=== PATIENT | male | born 1935 | race Caucasian/White ===

== ENCOUNTER 2017-08-07 15:19 | Inpatient (IN) | payer MEDICARE ==
[2017-08-07 16:17] LABS: Band 45 % (5-11); Hemoglobin 14.2 g/dL (14.0-18.0); Lymphocytes 4 % (21-51); MDiff Complete? YES; Mean Corpuscular HGB CONC 32.7 g/dL (32.0-36.0); Mean Corpuscular Hemoglobin 32.3 pg (27.0-31.0); Mean Corpuscular Volume 98.6 fl (80.0-94.0); Mean Platelet Volume 7.7 fL (7.4-10.4); Myelocyte 1 % (0-0); Neutrophil 50 % (42-75); PLT Morphology Comment Appears Decreased; Platelet Count 108 thou/uL (130-400); RBC Distribution Width 14.7 % (11.5-14.5); Reflex for Review?? NO; Vacuoles SLIGHT
--- NOTE | 2017-08-07 16:19 | RAD ---
CHEST ONE VIEW: History: Cough and dyspnea. Comparison: 12-09-16 FINDINGS: Cardiac silhouette and pulmonary vasculature are within normal limits. Mediastinum is midline with ao rtic calcification. Multifocal parenchymal infiltrates are present throughout the right lung and with in the left lower lobe. There is no evidence of pneumothorax. miter operator leads overlie the chest . IMPRESSION: 1. Bilateral multifocal pneumonia. 2. Atherosclerosis. POS: [facility]
[2017-08-07 16:22] LABS: ALT (SGPT) 16 U/L (8-55); AST (SGOT) 27 U/L (5-34); Albumin 3.5 g/dL (3.4-4.8); Alkaline Phosphatase 113 U/L (40-150); Anion Gap 14 mmol/L (10-20); BUN (Urea Nitrogen) 29 mg/dL (8.4-25.7); Bilirubin, Total 1.3 mg/dL (0.2-1.2); CK (CPK) 30 U/L (30-200); Calc. Creatinine Clearance 0 mL/min (70-130); Calcium 9.4 mg/dL (7.8-10.44); Carbon Dioxide 24 mmol/L (23-31); Chloride 104 mmol/L (98-107); Estimated GFR-MDRD 59; Globulin 3.1 g/dL (2.4-3.5); Glucose 100 mg/dL (83-110); Potassium 4.3 mmol/L (3.5-5.1); Protein, Total 6.6 g/dL (5.8-8.1); Sodium 138 mmol/L (136-145)
[2017-08-07 16:26] LABS: CKMB 0.7 ng/mL (0-6.6); Troponin I 0.115 ng/mL (< 0.028)
[2017-08-07] MEDS ORDERED: Cefepime 2 GM, Syringe 2.5 ML in Sterile Water 10 ML SLOW IVP SCH (16:45)
[2017-08-07 16:56] LABS: Bilirubin Small (Negative); Blood, Urine Negative (Negative); Clarity CLEAR (Clear); Glucose, Urine (Dipstick) Negative (Negative); Leukocyte Trace (Negative); Nitrite Negative (Negative); Protein, Urine (Dipstick) Trace mg/dL (Neg-Trace); Specific Gravity, Urine 1.024 (1.002-1.036)
[2017-08-07 17:01] LABS: Bacteria/HPF None Seen HPF (None Seen); Hyaline Casts/LPF 0-3 HYALINE CAST LPF (0-3 Hyaline); Pathc Cast-AUWi Flag 0.13 (0-2.49); RBC/HPF 0-3 HPF (0-3); Squamous Epithelial None Seen HPF (0-3); WBC/HPF 0-3 HPF (0-3)
[2017-08-07] MEDS ORDERED: Cefepime 2 GM/10 ML SYR ONE (17:12)
[2017-08-07] MEDS ORDERED: Aspirin 325 MG TAB ONE (17:27)
[2017-08-07 18:01] LABS: Digoxin 0.79 ng/mL (0.8-2.0)
[2017-08-07] MEDS ORDERED: Acetaminophen 500 MG TAB ONE (18:28)
[2017-08-07] MEDS ORDERED: Acetaminophen 325 MG TAB PO PRN (19:45)
[2017-08-07] MEDS ORDERED: Dextrose 5 % And 0.9 % NaCl 1,000 ML IV SCH (19:45)
[2017-08-07 20:05] LABS: Lactic Acid 2.8 mmol/L (0.5-2.2)
[2017-08-07] MEDS ORDERED: Cefepime 2 GM in Sodium Chloride 0.9% 100 ML IVPB SCH (21:00)
[2017-08-08] MEDS: Cefepime 2 GM, Syringe 2.5 ML in Sterile Water 10 ML SLOW IVP SCH ×2 (05:00→16:36)
[2017-08-08 05:11] VITALS: BMI 23.3
[2017-08-08 05:45] LABS: Band 28 % (5-11); Hemoglobin 11.1 g/dL (14.0-18.0); Lymphocytes 7 % (21-51); MDiff Complete? YES; Mean Corpuscular HGB CONC 33.2 g/dL (32.0-36.0); Mean Corpuscular Hemoglobin 32.7 pg (27.0-31.0); Mean Corpuscular Volume 98.7 fl (80.0-94.0); Monocytes 1 % (0-10); Neutrophil 64 % (42-75); PLT Morphology Comment Appears Decreased; Platelet Count 80 thou/uL (130-400); RBC Distribution Width 14.8 % (11.5-14.5); Red Blood Cell (RBC) Count 3.39 mill/uL (4.70-6.10); White Blood Cell (WBC) Count 9.3 thou/uL (4.8-10.8)
[2017-08-08 06:02] LABS: ALT (SGPT) 12 U/L (8-55); AST (SGOT) 21 U/L (5-34); Albumin 2.6 g/dL (3.4-4.8); Alkaline Phosphatase 83 U/L (40-150); Anion Gap 10 mmol/L (10-20); BUN (Urea Nitrogen) 34 mg/dL (8.4-25.7); Bilirubin, Total 0.9 mg/dL (0.2-1.2); Calc. Creatinine Clearance 53 mL/min (70-130); Calcium 8.4 mg/dL (7.8-10.44); Carbon Dioxide 23 mmol/L (23-31); Chloride 107 mmol/L (98-107); Estimated GFR-MDRD 70; Globulin 2.4 g/dL (2.4-3.5); Glucose 87 mg/dL (83-110); Potassium 3.8 mmol/L (3.5-5.1); Sodium 136 mmol/L (136-145)
--- NOTE | 2017-08-08 06:38 | HP ---
CHIEF COMPLAINT: Not feeling well, cough and shortness of breath for the last couple of weeks. HISTORY OF PRESENT ILLNESS: The patient is an 82-year-old man with a history of hypertension, rheumatoid arthritis and chronic atrial fibrillation. He came in having some cough and shortness of breath for the last 2 weeks. The [facility] and for bronchitis took antibiotics, finished a course of antibiotics, but still feeling cough and shortness of breath. Because of persistent symptoms, he decided to come to the ER. When come to ER, pulse 82, blood pressure 119/59, saturation 95% on room air. In the ER, he has a chest x-ray that shows bilateral pneumonia and lactate was high , so we will place on the sepsis protocol with pneumonia. PAST MEDICAL HISTORY: As mentioned hypertension, rheumatoid arthritis, and atrial fibrillation. PAST SURGICAL HISTORY: CABG x1 stent and left hip replacement. SOCIAL HISTORY: The patient drinks 5 drinks a day. Denies any drug or alcohol use. Former tobacco user, quit in 69. Antibiotics given in the ER, IV cefepime and vancomycin. The patient denies any fever. He does have some cough and shortness of breath. FAMILY HISTORY: reviewed and not pertinent to current illness REVIEW OF SYSTEMS: Constitutional: The patient has some malaise and chills. No fever. Eyes: Denies visual changes. ENT: He has some rhinorrhea. No sore throat. Cardiovascular: He has no chest pain. Respiratory: Cough and short of breath. Gastrointestinal: No nausea, no vomiting. Genitourinary: No dysuria, not any hematuria. Musculoskeletal: No back pain. Skin: No rash. Neurologic: No headache, no dizziness. PHYSICAL EXAMINATION: GENERAL: When examined, he is an elderly man lying in the bed, not in distress. VITAL SIGNS: Respiratory rate 20, pulse 80, and blood pressure 120/60. HEENT: Head is atraumatic, normocephalic. Pupils are round and reactive. Extraocular muscles are intact. Ears, nose and throat normal. Tongue mucosa is moist. NECK: Supple. No JVD. Trachea is midline. RESPIRATORY: With diminished breath sounds, bilateral crackles. Coarse crackles at the lower lobes. CARDIAC: S1, S2 audible. Atrial fibrillation. No S3, S4. No murmur. ABDOMEN: Soft. Bowel sounds audible. No distention, no tenderness, no hepatomegaly. Inguinal hernia present on the right side. BACK: Normal. No tenderness noted. NEUROLOGIC: Alert and oriented x3, no focal deficit. SKIN: Intact. No rashes noted. DIAGNOSTIC AND LABORATORY DATA: Her EKG shows atrial fibrillation 95, rate controlled. Chest x-ray shows bilateral multifocal pneumonia. Troponin is 0.115, CK-MB 0.7. BNP is 921. Sodium 138, potassium 4.3, chloride 104, carbon dioxide 24, anion gap 14, BUN 29, creatinine 1.19, GFR 59, glucose 100, bilirubin 1.3, protein 6.6, albumin 3.5, globulin 3.1, AST 29, ALT 16. WBC 12.0 , hemoglobin 14.2, hematocrit 43.4, MCV 98.6, platelets 108. Lactate is 3.8. ASSESSMENT: 1. Sepsis secondary to pneumonia, possible gram positive, gram negative cocci. 2. High BNP, possible fluid overload, we will put on IV Lasix 40 mg once daily and get echocardiogram to know the systolic versus diastolic function. 3. Atrial fibrillation, continue aspirin and Plavix. 4. History of coronary artery disease, status post stent on Plavix. PLAN: Continue oxygen inhalation, IV fluid, cautiously 50 mL per hour, then IV cefepime 1 gram q.12 hours, IV vancomycin for the gram positive and gram negative bacteria. Blood culture x2. Pneumonia pathway. Deep venous thrombosis prophylaxis will be Lovenox and Protonix. MTDD
[2017-08-08] MEDS: Enoxaparin Sodium 40 MG/0.4 ML SYRINGE SC SCH (08:42)
[2017-08-08] MEDS: Vancomycin HCl 1 GM in Premix Bag 1 BAG IVPB SCH ×2 (11:28→22:17)
[2017-08-08] MEDS: Sodium Chloride 0.9% 1,000 ML IV SCH ×2 (11:29→19:43)
--- NOTE | 2017-08-08 13:47 | PDOC.PN ---
- Subjective Encounter Start Date: 08/08/17 Encounter Start Time: 13:45 Subjective: Pt seen and examined for Pneumonia -: Chronic Atrial Fibrillation - Objective Resuscitation Status: Resuscitation Status FULL:Full Resuscitation MAR Reviewed: Yes Vital Signs & Weight: Vital Signs (12 hours) Temp Pulse Resp BP Pulse Ox 08/08/17 11:59 99.3 F 86 22 H 101/52 L 93 L 08/08/17 08:40 98.2 F 77 14 102/53 L 92 L 08/08/17 04:00 98.1 F 84 18 96/50 L 92 L Result Diagrams: 08/08/17 04:04 08/08/17 04:04 Phys Exam - Physical Examination Neck: no nodes, no JVD, supple, full ROM Respiratory: no wheezing, no rales, no rhonchi, wheezing present, clear to auscultation bilateral diminshed breath sounds, Crackles B/L Gastrointestinal: soft, non-tender, no distention, positive bowel sounds Musculoskeletal: no edema, pulses present, edema present Neurological: non-focal, normal sensation, moves all 4 limbs Psychiatric: normal affect, A&O x 3 Dx/Plan (1) Sepsis Code(s): A41.9 - SEPSIS, UNSPECIFIED ORGANISM Status: Acute (2) Pneumonia Code(s): J18.9 - PNEUMONIA, UNSPECIFIED ORGANISM Status: Acute (3) Atrial fibrillation Code(s): I48.91 - UNSPECIFIED ATRIAL FIBRILLATION Status: Acute - Plan DVT proph w/lovenox 1) Continue IV Cefepime and IV Vancycomin for Pneumonia -: 2) Continue Aspirin and Plavix for CAD -: 3) Await Blood C/s -: 4) DVT Prophylaxix Lovenox * . Review of Systems - Review of Systems Respiratory: Cough, Shortness of Breath. negative: Dry, Hemoptysis, SOB with Excertion, Pleuritic Pain, Sputum, Wheezing Cardiovascular: chest pain Genitourinary: Dysuria, Frequency - Medications/Allergies Allergies/Adverse Reactions: Allergies Allergy/AdvReac Type Severity Reaction Status Date / Time No Known Drug Allergies Allergy Verified 12/04/16 00:38 Medications: Current Medications Acetaminophen (Tylenol) 650 mg PO Q4H PRN PRN Reason: Headache/Fever or Pain Hydrocodone Bitart/Acetaminophen ([place] 5/325) 1 tab PO Q4H PRN PRN Reason: Moderate Pain (4-6) Hydrocodone Bitart/Acetaminophen ([place] 10/325) 1 tab PO BID [facility] Allopurinol (Zyloprim) 300 mg PO DAILY [facility] Carvedilol (Coreg) 6.25 mg PO BID [facility] Clopidogrel Bisulfate (Plavix) 75 mg PO DAILY [facility] Digoxin (Lanoxin) 0.25 mg PO DAILY [facility] Enoxaparin Sodium (Lovenox) 40 mg SC 0900 [facility] Last Admin: 08/08/17 08:42 Dose: 40 mg Folic Acid (Folvite) 1 mg PO DAILY [facility] Cefepime HCl 2 gm/ Syringe 2.5 (ml/ Sterile Water) 12.5 mls @ 150 mls/hr SLOW IVP 0500,1700 [facility] Last Admin: 08/08/17 05:00 Dose: 12.5 mls Sodium Chloride (Normal Saline 0.9%) 1,000 mls @ 100 mls/hr IV .Q10H [facility] Last Admin: 08/08/17 11:29 Dose: 1,000 mls Vancomycin HCl 1 gm/ Device 200 mls @ 200 mls/hr IVPB 1100,2300 [facility] Last Admin: 08/08/17 11:28 Dose: 200 mls Lisinopril (Zestril) 40 mg PO DAILY [facility]
[2017-08-08] MEDS: HYDROcodone/Acetaminophen 5/325 mg Tablet PO PRN (16:35)
[2017-08-08] MEDS ORDERED: Vancomycin HCl 1 GM in Premix Bag 1 BAG IVPB SCH (18:00)
[2017-08-08] MEDS ORDERED: Vancomycin HCl 750 MG in Sodium Chloride 0.9% 250 ML 250 ML IVPB SCH (21:00)
[2017-08-08] MEDS: Carvedilol 6.25 MG TAB PO SCH (21:09)
[2017-08-08] MEDS: HYDROcodone/Acetaminophen 10/325 mg Tablet PO SCH (21:10)
[2017-08-09] MEDS: Cefepime 2 GM, Syringe 2.5 ML in Sterile Water 10 ML SLOW IVP SCH ×2 (06:46→17:24)
[2017-08-09] MEDS: Sodium Chloride 0.9% 1,000 ML IV SCH ×2 (06:48→08:57)
--- NOTE | 2017-08-09 08:08 | PDOC.PN ---
- Subjective Encounter Start Date: 08/09/17 Encounter Start Time: 08:30 Subjective: Continued cough, tired out. No other complaints. - Objective Resuscitation Status: Resuscitation Status FULL:Full Resuscitation MAR Reviewed: Yes Vital Signs & Weight: Vital Signs (12 hours) Temp Pulse Resp BP BP Pulse Ox 08/09/17 03:20 68 20 107/57 L 93 L 08/08/17 21:10 98.5 F 91 24 H 96 08/08/17 21:09 108/70 08/08/17 21:06 98.7 F 81 20 108/70 96 I&O: 08/08/17 08/09/17 08/10/17 06:59 06:59 06:59 Intake Total 960 Output Total 1000 Balance -40 Result Diagrams: 08/08/17 04:04 08/08/17 04:04 Phys Exam - Physical Examination Constitutional: NAD HEENT: moist MMs course breath sounds bilaterally Cardiovascular: RRR, no significant murmur Gastrointestinal: soft, positive bowel sounds Neurological: non-focal, moves all 4 limbs Psychiatric: normal affect, A&O x 3 Dx/Plan (1) Pneumonia Code(s): J18.9 - PNEUMONIA, UNSPECIFIED ORGANISM Status: Acute Qualifiers: Pneumonia type: due to unspecified organism Laterality: bilateral Comment: On Cefepime and Vanc, Blood culture 1/2 coag neg staph contaminent, will obtain sputum culture, leukocytosis resolved (2) Congestive heart failure (CHF) Code(s): I50.9 - HEART FAILURE, UNSPECIFIED Status: Acute Qualifiers: Congestive heart failure type: unspecified congestive heart failure type Congestive heart failure chronicity: acute Qualified Code(s): I50.9 - Heart failure, unspecified Comment: ECHO ordered, on Lasix (3) Atrial fibrillation Code(s): I48.91 - UNSPECIFIED ATRIAL FIBRILLATION Status: Chronic (4) Rheumatoid arthritis Code(s): M06.9 - RHEUMATOID ARTHRITIS, UNSPECIFIED Status: Chronic - Plan cont current plan of care, continue antibiotics, PT/OT, DVT proph w/lovenox Sputum culture. Flu if not done in ER. * . - Discharge Day Encounter end time: 09:00
--- NOTE | 2017-08-09 11:19 | EKG ---
Test Reason : Blood Pressure : / mmHG Vent. Rate : 094 BPM Atrial Rate : 416 BPM P-R Int : 000 ms QRS Dur : 084 ms QT Int : 334 ms P-R-T Axes : 000 045 058 degrees QTc Int : 417 ms Atrial fibrillation with premature ventricular or aberrantly conducted complexes Septal infarct , age undetermined Abnormal ECG Confirmed by KAREEN HODGE M.D. ([id number]), editorial manager YISSEL FU ([id number]) on 08/09/2017 11:18:26 AM Referred By: Confirmed By:KAREEN HODGE M.D.
[2017-08-09] MEDS: Vancomycin HCl 1 GM in Premix Bag 1 BAG IVPB SCH ×2 (12:11→23:33)
[2017-08-09] MEDS: Carvedilol 6.25 MG TAB PO SCH ×2 (12:13→20:04)
[2017-08-09] MEDS: Clopidogrel Bisulfate 75 MG TAB PO SCH (12:13)
[2017-08-09] MEDS: Lisinopril 20 MG TAB PO SCH (12:13)
[2017-08-09] MEDS: Digoxin 0.25 MG TAB PO SCH (12:14)
[2017-08-09] MEDS: HYDROcodone/Acetaminophen 10/325 mg Tablet PO SCH ×2 (12:15→20:02)
[2017-08-09] MEDS: Folic Acid 1 MG TAB PO SCH (12:18)
[2017-08-09] MEDS: Enoxaparin Sodium 40 MG/0.4 ML SYRINGE SC SCH (12:18)
[2017-08-09] MEDS: Allopurinol 300 MG TAB PO SCH (12:19)
[2017-08-09] MEDS: Benzonatate 100 MG CAP PO PRN (20:02)
[2017-08-09 22:31] LABS: Vancomycin, Trough 18.2 ug/mL
[2017-08-10] MEDS: Sodium Chloride 0.9% 1,000 ML IV SCH (00:46)
[2017-08-10] MEDS: Benzonatate 100 MG CAP PO PRN ×2 (03:12→11:14)
--- NOTE | 2017-08-10 07:04 | PDOC.PN ---
- Subjective Encounter Start Date: 08/10/17 Encounter Start Time: 07:02 Subjective: seen and examined feeling tired - Objective Resuscitation Status: Resuscitation Status FULL:Full Resuscitation Vital Signs & Weight: Vital Signs (12 hours) Temp Pulse Resp BP BP Pulse Ox 08/10/17 03:13 56 L 20 102/58 L 93 L 08/09/17 23:37 99.4 F 70 18 90/52 L 08/09/17 20:04 116/55 L 08/09/17 20:01 99.1 F 66 18 116/55 L 93 L 08/09/17 20:00 99.4 F 70 18 93 L I&O: 08/09/17 08/10/17 08/11/17 06:59 06:59 06:59 Intake Total 960 1140 Output Total 1000 825 Balance -40 315 Result Diagrams: 08/08/17 04:04 08/08/17 04:04 Phys Exam - Physical Examination Constitutional: NAD HEENT: PERRLA, moist MMs, sclera anicteric, TM's clear Neck: no nodes, no JVD, supple, full ROM Respiratory: no wheezing, no rales, no rhonchi, clear to auscultation bilateral Cardiovascular: RRR, no significant murmur, no rub Gastrointestinal: soft, non-tender, no distention, positive bowel sounds Musculoskeletal: pulses present Dx/Plan (1) Congestive heart failure (CHF) Code(s): I50.9 - HEART FAILURE, UNSPECIFIED Status: Acute Qualifiers: Congestive heart failure type: unspecified congestive heart failure type Congestive heart failure chronicity: acute Qualified Code(s): I50.9 - Heart failure, unspecified Comment: ECHO ordered, on Lasix (2) Pneumonia Code(s): J18.9 - PNEUMONIA, UNSPECIFIED ORGANISM Status: Acute Qualifiers: Pneumonia type: due to unspecified organism Laterality: bilateral Comment: On Cefepime and Vanc, Blood culture 1/2 coag neg staph contaminent, will obtain sputum culture, leukocytosis resolved (3) Sepsis Code(s): A41.9 - SEPSIS, UNSPECIFIED ORGANISM Status: Acute (4) Atrial fibrillation Code(s): I48.91 - UNSPECIFIED ATRIAL FIBRILLATION Status: Chronic (5) Rheumatoid arthritis Code(s): M06.9 - RHEUMATOID ARTHRITIS, UNSPECIFIED Status: Chronic - Plan plan discussed w/ family, continue antibiotics, PT/OT, hospital social worker, respiratory therapy Consider switching antibiotics around-seems to be feeling better though -: D/c IVF -: Further management to be dependent on the clinical course * .
[2017-08-10] MEDS: Cefepime 2 GM, Syringe 2.5 ML in Sterile Water 10 ML SLOW IVP SCH ×2 (11:12→18:37)
[2017-08-10] MEDS: Enoxaparin Sodium 40 MG/0.4 ML SYRINGE SC SCH (11:12)
[2017-08-10] MEDS: Lisinopril 20 MG TAB PO SCH (11:13)
[2017-08-10] MEDS: Digoxin 0.25 MG TAB PO SCH (11:13)
[2017-08-10] MEDS: Clopidogrel Bisulfate 75 MG TAB PO SCH (11:14)
[2017-08-10] MEDS: Allopurinol 300 MG TAB PO SCH (11:14)
[2017-08-10] MEDS: Folic Acid 1 MG TAB PO SCH (11:14)
[2017-08-10] MEDS: Carvedilol 6.25 MG TAB PO SCH ×2 (11:14→21:08)
[2017-08-10] MEDS: HYDROcodone/Acetaminophen 10/325 mg Tablet PO SCH ×2 (11:15→21:08)
[2017-08-10] MEDS: Vancomycin HCl 1 GM in Premix Bag 1 BAG IVPB SCH ×2 (11:21→23:21)
[2017-08-10] MEDS: HYDROcodone/Acetaminophen 5/325 mg Tablet PO PRN (15:12)
[2017-08-11] MEDS: Cefepime 2 GM, Syringe 2.5 ML in Sterile Water 10 ML SLOW IVP SCH (05:14)
[2017-08-11] MEDS: Benzonatate 100 MG CAP PO PRN ×2 (05:14→13:30)
--- NOTE | 2017-08-11 07:52 | PDOC.PN ---
- Subjective Encounter Start Date: 08/11/17 Encounter Start Time: 08:30 Subjective: Cough improved, still quite productive. No fever. SOB better. No -: swelling of lower extremities. - Objective Resuscitation Status: Resuscitation Status FULL:Full Resuscitation MAR Reviewed: Yes Vital Signs & Weight: Vital Signs (12 hours) Temp Pulse Resp BP BP Pulse Ox 08/11/17 05:17 98.0 F 65 20 131/55 L 95 08/10/17 21:08 98.7 F 64 20 119/58 L 119/58 L 96 08/10/17 21:05 97.5 F L 63 16 Weight Weight 164 lb 8 oz I&O: 08/10/17 08/11/17 08/12/17 06:59 06:59 06:59 Intake Total 2440 1520 Output Total 825 675 Balance 1615 845 Result Diagrams: 08/08/17 04:04 08/08/17 04:04 Phys Exam - Physical Examination Constitutional: NAD HEENT: moist MMs Respiratory: no wheezing coarse breath sounds bilaterally Cardiovascular: RRR, no significant murmur Gastrointestinal: soft, positive bowel sounds Musculoskeletal: no edema Neurological: non-focal, moves all 4 limbs Psychiatric: normal affect, A&O x 3 Dx/Plan (1) Pneumonia Code(s): J18.9 - PNEUMONIA, UNSPECIFIED ORGANISM Status: Acute Qualifiers: Pneumonia type: due to unspecified organism Laterality: bilateral Comment: On Cefepime and Vanc, Blood culture 1/2 coag neg staph contaminent, influenza negative, sputum culture pending normal joe so far, leukocytosis resolved (2) Congestive heart failure (CHF) Code(s): I50.9 - HEART FAILURE, UNSPECIFIED Status: Acute Qualifiers: Congestive heart failure type: systolic Congestive heart failure chronicity : acute Qualified Code(s): I50.21 - Acute systolic (congestive) heart failure Comment: ECHO EF 35-40%, afib, received fluids now stopped, will start Lasix 20mg daily (3) Atrial fibrillation Code(s): I48.91 - UNSPECIFIED ATRIAL FIBRILLATION Status: Chronic (4) Rheumatoid arthritis Code(s): M06.9 - RHEUMATOID ARTHRITIS, UNSPECIFIED Status: Chronic - Plan cont current plan of care, continue antibiotics, DVT proph w/lovenox Will transition to Cefdinir BID and watch for continued improvement. * . - Discharge Day Encounter end time: 09:00
[2017-08-11] MEDS ORDERED: Furosemide 20 MG TAB PO SCH (09:00)
[2017-08-11 10:16] LABS: Vancomycin, Trough 22.2 ug/mL
[2017-08-11] MEDS: Enoxaparin Sodium 40 MG/0.4 ML SYRINGE SC SCH (10:56)
[2017-08-11] MEDS: HYDROcodone/Acetaminophen 10/325 mg Tablet PO SCH ×2 (10:57→22:17)
[2017-08-11] MEDS: Lisinopril 20 MG TAB PO SCH (10:58)
[2017-08-11] MEDS: Allopurinol 300 MG TAB PO SCH (10:58)
[2017-08-11] MEDS: Carvedilol 6.25 MG TAB PO SCH (11:05)
[2017-08-11] MEDS: Furosemide 20 MG TAB PO SCH (11:06)
[2017-08-11] MEDS: Digoxin 0.25 MG TAB PO SCH (11:06)
[2017-08-11] MEDS: Folic Acid 1 MG TAB PO SCH (11:06)
[2017-08-11] MEDS: Clopidogrel Bisulfate 75 MG TAB PO SCH (11:06)
--- NOTE | 2017-08-11 17:10 | CON ---
DATE OF CONSULTATION: 08/11/2017. INDICATION FOR CONSULTATION: Decrease in left ventricular systolic function in 82-year-old patient w ith pneumonia. HISTORY OF PRESENT ILLNESS: This very unfortunate 82-year-old gentleman who was seen by Dr. Shah I believe in 11/2016. He has had a history of atrial fibrillation for a long time. He was admitted due to a left neck fracture at that time. He has had some problems with I believe Coumadin with isabel e bleeding issues, but no GI problems. He had been on Plavix because he tolerated this somewhat bett er for his atrial fibrillation. He has had no neurological events apparently while being on the Plav ix and aspirin. He does have a history of hypertension also and has had history of coronary artery d isease and underwent stent placement in the past. At this time, he developed shortness of breath at home several days ago and has been having some problems with coughing and coughing became rather praveen re. He became weak and fatigued and then presented to the emergency room and since that time, he has been feeling somewhat better, but appeared by laboratory data and evaluation of the patient that he was having early sepsis associated with his pneumonia, also was found to have his chronic atrial fibr illation. He had a repeat echocardiogram which showed ejection fraction is about 30-35%. Previously echocardiogram showed an ejection fraction around 50-55% I believe. He also has a history of signif icant aortic stenosis and he continues to have at least [id number] aortic stenosis with a juliana ve area of 1.2 cm2 on the echocardiogram at this time. By chest x-ray, he was diagnosed with bilater al pneumonias. He denied any chest pain and had recently been doing well until he developed the bila teral pneumonias. PAST MEDICAL HISTORY: Significant for rheumatoid arthritis, chronic atrial fibrillation, hypertension , aortic valve stenosis, coronary artery disease with angioplasty and stent placement. He has had he rnia repairs. SOCIAL HISTORY: He lives with family members. He has occasional alcohol use. He smoked in the past , but stopped several years ago apparently. He continues to drink about 5 drinks a day. FAMILY HISTORY: Noncontributory. REVIEW OF SYSTEMS: He mainly complained of shortness of breath, coughing, fatigue. He denied any ch est pain. He had no GI or complaints. No nausea, vomiting, diarrhea, no dysuria, hematuria. He had no lower extremity edema. He denied any claudication type symptoms. ALLERGIES: No known drug allergies. MEDICATIONS: Prior to admission included methotrexate, folic acid, Coreg, Plavix, digoxin, allopurin ol, lisinopril, hydrocodone/acetaminophen or [place]. At this time, his medications; in addition to th e elements already mentioned include Tessalon Perles, Tylenol and cefepime. He had been given x1 dos e; I believe this has been switched over to Omnicef. He has also been placed on Lovenox as well as h e did receive a dose of vancomycin. He is also taking lisinopril Lasix, and digoxin. PHYSICAL EXAMINATION: GENERAL: Reveals an elderly gentleman who is in no acute distress. He did have some coughing during the evaluation. HEENT: Reveals the head to be normocephalic, atraumatic. He has decreased bilateral carotid pulses. He has significant bruits, left greater than the right in the carotid area. CARDIOVASCULAR: He has an irregularly irregular rhythm at this time. He does have a systolic murmur at the apex and also has significant systolic murmur over the aortic area compatible with his aortic valve stenosis. I did not hear any thrills, feel any heaves. His chest shows coarse rhonchi bilate rally. He has mild expiratory wheezing. ABDOMEN: Soft and nontender. Positive bowel sounds are present. EXTREMITIES: Showed minimal left lower extremity ankle edema. Pedal pulses are difficult to palpate and also was difficult to palpate a right popliteal pulse and the left popliteal pulse appears to be normal. Femoral pulses also are slightly decreased. NEUROLOGIC: The patient appears to be intact. He has normal strength and tone for someone of his ag e. SKIN: Warm and dry. LABORATORY AND X-RAY FINDINGS: Shows creatinine 1.02, hemoglobin 11.1, WBC 9.3. Troponin I is indet erminate at 0.11. His BNP is elevated at 921, CPK MB was 0.7, potassium 3.8. IMPRESSION: 1. Bilateral pneumonia in an elderly gentleman who is being treated by antibiotics. 2. Decrease in left ventricular systolic function which is a new finding, this may be due to his rec ent illness and may improve after antibiotics treatment of the pneumonia, but previously an echocardi ogram showed an ejection fraction around 55% and then now is around 30-35% of uncertain etiology, but if he has had no significant changes in his EKG, he continues to have chronic atrial fibrillation, b ut without ST segment changes to indicate ischemia and cardiac enzymes, do not indicate myocardial in farction, we will suggest just repeating the echocardiogram in a month of two when the patient become s more stable. 3. Chronic atrial fibrillation. I would agree with the Lovenox at this time we will watch for bleed ing. He has also been continued on the Plavix. 4. Coronary artery disease. This appears to be stable. 5. Elevated BNP. This may be due also to some of his decompensation associated with the pneumonia a nd change in the left ventricular systolic function, but we will be careful not to volume overload th e patient. We will continue his diuretics. We will continue to follow the patient with you. Dr. Katarina kendrick will resume his care tomorrow.
[2017-08-11] MEDS: Diabetic Tussin 200 MG/10 ML UDCUP PO PRN (22:17)
[2017-08-11] MEDS: Cefdinir 300 MG CAP PO SCH (22:17)
[2017-08-12 05:37] LABS: #Eosinphils 0.1 thou/uL (0.0-0.7); #Lymphocytes 0.5 thou/uL (1.20-3.40); #Monocytes 0.2 thou/uL (0.11-0.59); #Neutrophils 1.5 thou/uL (1.40-6.50); %Basophils 0.5 % (0.0-1.0); %Eosinophils 5.7 % (0.0-10.0); %Neutrophils 63.9 % (42.0-75.0); Hemoglobin 10.5 g/dL (14.0-18.0); Mean Corpuscular HGB CONC 32.7 g/dL (32.0-36.0); Mean Corpuscular Hemoglobin 32.2 pg (27.0-31.0); Mean Corpuscular Volume 98.2 fl (80.0-94.0); Mean Platelet Volume 9.2 fL (7.4-10.4); Platelet Count 59 thou/uL (130-400); RBC Distribution Width 14.6 % (11.5-14.5); Red Blood Cell (RBC) Count 3.26 mill/uL (4.70-6.10); White Blood Cell (WBC) Count 2.3 thou/uL (4.8-10.8)
[2017-08-12 05:39] LABS: Anion Gap 9 mmol/L (10-20); BUN (Urea Nitrogen) 16 mg/dL (8.4-25.7); Calc. Creatinine Clearance 79 mL/min (70-130); Calcium 8.4 mg/dL (7.8-10.44); Carbon Dioxide 24 mmol/L (23-31); Chloride 107 mmol/L (98-107); Estimated GFR-MDRD Greater than 90; Glucose 87 mg/dL (83-110); Potassium 3.7 mmol/L (3.5-5.1); Sodium 136 mmol/L (136-145)
[2017-08-12] MEDS: HYDROcodone/Acetaminophen 10/325 mg Tablet PO SCH ×2 (09:36→20:24)
[2017-08-12] MEDS: Cefdinir 300 MG CAP PO SCH ×2 (09:36→20:24)
[2017-08-12] MEDS: Allopurinol 300 MG TAB PO SCH (09:37)
[2017-08-12] MEDS: Furosemide 20 MG TAB PO SCH (09:37)
[2017-08-12] MEDS: Digoxin 0.25 MG TAB PO SCH (09:37)
[2017-08-12] MEDS: Lisinopril 20 MG TAB PO SCH (09:37)
[2017-08-12] MEDS: Clopidogrel Bisulfate 75 MG TAB PO SCH (09:38)
[2017-08-12] MEDS: Enoxaparin Sodium 40 MG/0.4 ML SYRINGE SC SCH (09:38)
[2017-08-12] MEDS: Folic Acid 1 MG TAB PO SCH (09:38)
[2017-08-12] MEDS: Diabetic Tussin 200 MG/10 ML UDCUP PO PRN ×2 (09:43→20:29)
--- NOTE | 2017-08-12 13:25 | PDOC.PN ---
- Subjective Encounter Start Date: 08/12/17 Encounter Start Time: 16:00 Subjective: Cough improving. SOB resolved. Has had intermittent BBB/ accelerated -: junctional rhythm on and off today, off Coreg. - Objective Resuscitation Status: Resuscitation Status FULL:Full Resuscitation MAR Reviewed: Yes Vital Signs & Weight: Vital Signs (12 hours) Temp Pulse Resp BP BP Pulse Ox 08/12/17 09:37 67 100/50 L 08/12/17 07:35 97.2 F L 61 16 130/68 93 L 08/12/17 04:00 97.7 F 63 18 112/53 L 93 L Weight Weight 164 lb 8 oz I&O: 08/11/17 08/12/17 08/13/17 06:59 06:59 06:59 Intake Total 1520 1200 Output Total 675 Balance 845 1200 Result Diagrams: 08/12/17 04:04 08/12/17 04:04 Phys Exam - Physical Examination Constitutional: NAD HEENT: moist MMs Respiratory: no wheezing, no rhonchi coarse bs in bases Cardiovascular: no significant murmur, irregular Gastrointestinal: soft, positive bowel sounds Musculoskeletal: no edema Neurological: non-focal, moves all 4 limbs Psychiatric: normal affect, A&O x 3 Dx/Plan (1) Pneumonia Code(s): J18.9 - PNEUMONIA, UNSPECIFIED ORGANISM Status: Acute Qualifiers: Pneumonia type: due to unspecified organism Laterality: bilateral Comment: Cefepime and Vanc d/c'd and on Omnicef, Blood culture 1/2 coag neg staph contaminent, influenza negative, sputum culture pending normal joe, leukocytosis resolved (2) Congestive heart failure (CHF) Code(s): I50.9 - HEART FAILURE, UNSPECIFIED Status: Acute Qualifiers: Congestive heart failure type: systolic Congestive heart failure chronicity : acute Qualified Code(s): I50.21 - Acute systolic (congestive) heart failure Comment: ECHO EF 35-40%, afib, received fluids now stopped, will start Lasix 20mg daily, cardiology recommends repeat ECHO in 1 month to see if EF rebounds after pneumonia gone (3) Atrial fibrillation Code(s): I48.91 - UNSPECIFIED ATRIAL FIBRILLATION Status: Chronic Comment: pauses so Carvedilol held, now with some junctional rhythm (4) Rheumatoid arthritis Code(s): M06.9 - RHEUMATOID ARTHRITIS, UNSPECIFIED Status: Chronic - Plan cont current plan of care, continue antibiotics, PT/OT, DVT proph w/lovenox Management of arrhythmia per Dr. Shah's recommendations. * . - Discharge Day Encounter end time: 16:30
[2017-08-13] MEDS ORDERED: Magnesium Oxide 400 MG TAB PO SCH (00:30)
[2017-08-13 05:36] LABS: Anion Gap 13 mmol/L (10-20); BUN (Urea Nitrogen) 15 mg/dL (8.4-25.7); Calc. Creatinine Clearance 81 mL/min (70-130); Calcium 8.4 mg/dL (7.8-10.44); Carbon Dioxide 23 mmol/L (23-31); Chloride 106 mmol/L (98-107); Estimated GFR-MDRD Greater than 90; Glucose 82 mg/dL (83-110); Potassium 3.5 mmol/L (3.5-5.1); Sodium 138 mmol/L (136-145)
[2017-08-13 05:48] LABS: #Eosinphils 0.1 thou/uL (0.0-0.7); #Lymphocytes 0.6 thou/uL (1.20-3.40); #Monocytes 0.2 thou/uL (0.11-0.59); #Neutrophils 1.3 thou/uL (1.40-6.50); %Basophils 1.3 % (0.0-1.0); %Eosinophils 6.1 % (0.0-10.0); %Lymphocytes 26.9 % (21.0-51.0); %Monocytes 7.7 % (0.0-10.0); Hemoglobin 10.6 g/dL (14.0-18.0); Mean Corpuscular HGB CONC 32.8 g/dL (32.0-36.0); Mean Corpuscular Hemoglobin 32.3 pg (27.0-31.0); Mean Corpuscular Volume 98.5 fl (80.0-94.0); Mean Platelet Volume 7.8 fL (7.4-10.4); Platelet Count 84 thou/uL (130-400); RBC Distribution Width 14.4 % (11.5-14.5); Red Blood Cell (RBC) Count 3.28 mill/uL (4.70-6.10); White Blood Cell (WBC) Count 2.2 thou/uL (4.8-10.8)
[2017-08-13] MEDS: Enoxaparin Sodium 40 MG/0.4 ML SYRINGE SC SCH (08:24)
[2017-08-13] MEDS: Diabetic Tussin 200 MG/10 ML UDCUP PO PRN (08:27)
[2017-08-13] MEDS: Clopidogrel Bisulfate 75 MG TAB PO SCH (08:28)
[2017-08-13] MEDS: Furosemide 20 MG TAB PO SCH (08:28)
[2017-08-13] MEDS: Allopurinol 300 MG TAB PO SCH (08:28)
[2017-08-13] MEDS: Cefdinir 300 MG CAP PO SCH (08:28)
[2017-08-13] MEDS: HYDROcodone/Acetaminophen 10/325 mg Tablet PO SCH (08:28)
[2017-08-13] MEDS: Lisinopril 20 MG TAB PO SCH (08:28)
[2017-08-13] MEDS: Digoxin 0.25 MG TAB PO SCH (08:28)
[2017-08-13] MEDS: Folic Acid 1 MG TAB PO SCH (08:29)
--- NOTE | 2017-08-13 08:33 | PDOC.PN ---
- Subjective Encounter Start Date: 08/13/17 Encounter Start Time: 09:30 Subjective: Cough much better. SOB resolved. No chest pain. Ambulating well. -: Eager to go home. - Objective Resuscitation Status: Resuscitation Status FULL:Full Resuscitation MAR Reviewed: Yes Vital Signs & Weight: Vital Signs (12 hours) Temp Pulse Resp BP BP Pulse Ox 08/13/17 08:28 76 135/63 08/13/17 08:19 98.3 F 76 18 135/63 93 L 08/13/17 03:45 98.0 F 71 18 117/56 L 94 L Weight Weight 163 lb 1 oz I&O: 08/12/17 08/13/17 08/14/17 06:59 06:59 06:59 Intake Total 1200 320 Output Total 1250 Balance 1200 -930 Result Diagrams: 08/13/17 04:11 08/13/17 04:11 Phys Exam - Physical Examination Constitutional: NAD HEENT: moist MMs Respiratory: no wheezing, no rales, no rhonchi, clear to auscultation bilateral Cardiovascular: no significant murmur reg rate, irregular Gastrointestinal: soft, non-tender, positive bowel sounds Musculoskeletal: no edema Neurological: non-focal, moves all 4 limbs Psychiatric: normal affect, A&O x 3 Dx/Plan (1) Pneumonia Code(s): J18.9 - PNEUMONIA, UNSPECIFIED ORGANISM Status: Acute Qualifiers: Pneumonia type: due to unspecified organism Laterality: bilateral Comment: Cefepime and Vanc d/c'd and on Omnicef, Blood culture 1/2 coag neg staph contaminent, influenza negative, sputum culture pending normal joe, leukocytosis resolved (2) Congestive heart failure (CHF) Code(s): I50.9 - HEART FAILURE, UNSPECIFIED Status: Acute Qualifiers: Congestive heart failure type: systolic Congestive heart failure chronicity : acute Qualified Code(s): I50.21 - Acute systolic (congestive) heart failure Comment: ECHO EF 35-40%, afib, received fluids now stopped, will start Lasix 20mg daily, cardiology recommends repeat ECHO in 1 month to see if EF rebounds after pneumonia gone (3) Atrial fibrillation Code(s): I48.91 - UNSPECIFIED ATRIAL FIBRILLATION Status: Chronic Comment: pauses so Carvedilol held, now with some accelerated interventricular rhythm/ intermittent BBB, observe per Dr. Shah and see if resolves on f/u in one month (4) Rheumatoid arthritis Code(s): M06.9 - RHEUMATOID ARTHRITIS, UNSPECIFIED Status: Chronic - Plan cont current plan of care, continue antibiotics, PT/OT, DVT proph w/lovenox Can likely go home later today if ok with cardiology * . - Discharge Day Encounter end time: 10:00
[2017-08-13 12:57] VITALS: BP 93/52; TEMP 97.5
--- NOTE | 2017-08-13 22:52 | DIS ---
PRIMARY CARE PHYSICIAN: [facility]. DIAGNOSES ON ADMISSION: 1. Pneumonia. 2. Sepsis. 3. Elevated brain natriuretic peptide. 4. Atrial fibrillation. 5. History of coronary artery disease. DIAGNOSES ON DISCHARGE: 1. Pneumonia, improved. 2. Acutely worsened systolic congestive heart failure with a drop in ejection fraction of 35% to 40% . 3. Atrial fibrillation alternating with accelerated intraventricular rhythm. 4. Rheumatoid arthritis. PROCEDURES: None. CONSULTATIONS: Cardiology, Dr. Rivero for Dr. Shah. PROCEDURES: Echocardiogram showing ejection fraction of 35% to 40% with severely dilated left atrium and moderate aortic stenosis with a valve area of 1.2 square cm. SUMMARY OF HOSPITAL COURSE: This is an 82-year-old white male with history of hypertension, rheumato id arthritis, and chronic atrial fibrillation who came in with a cough and shortness breath for 2 wee . He had some antibiotics for bronchitis, but they did not help. In the ER, he was found to have a bilateral pneumonia on chest x-ray along with meeting criteria for sepsis, so he was admitted to [facility], was given broad spectrum IV antibiotics. Patient was also noted to have a high brain jose riuretic peptide. He had an echocardiogram, which showed an ejection fraction as above. Dr. Rivero wa s consulted for Dr. Shah. Apparently, the patient has had a normal ejection fraction recently in Dr. Shah's office, so there is some drop in ejection fraction and is direct impact of the pneumo jason and may improve. Patient got much better over the course of hospitalization with his treatment o f pneumonia. He was switched to oral antibiotics with continued improvement. On the day of discharg e, he was having minimal cough and no more shortness of breath and was ready to go home. During the patient's hospitalization, he was noted on telemetry monitoring to use 3 second pauses multiple times . Dr. Rivero was initially consulted for this. Coreg was held and the pauses stopped; however, patien t did go into an accelerated intraventricular arrhythmias in the 60s to 70s beats per minute and Dr. Shah saw the patient about this. He determined this was most likely due to his pneumonia. The p atient was okay to be discharged home, but he holds beta nia for now. Patient was put on oral La six in the hospital and had good urine output and diuresed well with this. On the day of discharge, patient was doing well and is being discharged home with JUANA inhibitor, but holding beta nia due to his heart rate pauses on the medication earlier during the hospitalization. DISCHARGE MANAGEMENT: Discharged home with home health. ACTIVITIES: As tolerated. DIET: Healthy heart, low sodium, fluid restricted diet. FOLLOWUP: Follow up with Dr. Soto on the 08/[address] Shah on 09/08, patient will need an echocardiogram in a month. MEDICATIONS: 1. Cefdinir 300 mg twice a day for 1 more day to complete his course of antibiotics. 2. Lasix 20 mg daily, 30 tablets dispensed. 3. Resume home medications, lisinopril 40 mg daily. 4. Methotrexate 20 mg every 7 days. 5. Folic acid 1 mg daily. 6. Digoxin 0.25 mg daily. 7. Allopurinol 300 mg daily. 8. Outing twice a day as needed.
--- NOTE | 2017-08-19 14:10 | PQF ---
NOEMI JANE RYAN ANDREW MD [id number] CLINICAL DOCUMENTATION CLARIFICATION FORM: POST DISCHARGE Addendum to original discharge summary date: ____ Late entry note date: __ NOEMI JANE [id number] BALDEV MCCLURE PLEASE DOCUMENT YOUR RESPONSE BELOW PLEASE FAX RESPONSE BACK TO YOUR INPUT IS NEEDED TO CORRECTLY CODE A DIAGNOSIS FOR YOUR PATIENT. DATE: 08/19/17 ATTN: DR DUTTON Please exercise your independent, professional judgment in responding to the clarification form. Clinical indicators are provided on the bottom of this form for your review Please check appropriate box(s) to clarify if the following diagnosis has been ruled in our ruled out: SEPSIS (CDI/Coding list diagnosis here) [ X ] Ruled in diagnosis [ ] Continue to treat [ X ] Resolved [ ] Ruled out diagnosis [ ] Cannot rule out diagnosis [ ] Other diagnosis [ ] Unable to determine In addition, please specify: Present on Admission (POA): [ X ] Yes [ ] No [ ] Unable to determine For continuity of documentation, please document condition throughout progress notes and discharge summary. Thank You. CLINICAL INDICATORS - SIGNS / SYMPTOMS / LABS FEVER LEUKOCYTOSIS RISK FACTORS PNEUMONIA ACUTE HEART FAILURE TREATMENTS IV ANTIBIOTICS H&P AND DC SUMMARY STATE "MEETING CRITERIA FOR SEPSIS, SO HE WAS ADMITTED TO THE HOSPITAL, WAS GIVEN BROAD SPECTRUM IV ANTIBIOTICS" (This form is maintained as a part of the permanent medical record) 2014 [employer]. All Rights Reserved [email or web address] [phone] [email or web address]
== END 2017-08-13 14:40 | disposition home health service (06) | DRG 871 ==
LOC: ERS 15:19 → 2NO 18:00
PROVIDERS: ADMIT Family Medicine; ATTEND Family Medicine
DX: A41.9 Sepsis, unspecified organism (principal); J18.9 Pneumonia, unspecified organism; I50.21 Acute systolic (congestive) heart failure; I48.2 Chronic atrial fibrillation; M06.9 Rheumatoid arthritis, unspecified; Z95.1 Presence of aortocoronary bypass graft; I10 Essential (primary) hypertension; Z95.5 Presence of coronary angioplasty implant and graft; Z96.642 Presence of left artificial hip joint; F10.10 Alcohol abuse, uncomplicated; Z79.01 Long term (current) use of anticoagulants; I25.10 Atherosclerotic heart disease of native coronary artery without angina pectoris; Z87.891 Personal history of nicotine dependence
CPT/HCPCS: 36415; 71010; 80048; 80053; 80162; 80202; 81003; 81015; 82550; 82553; 83605; 83735; 83880; 84484; 85025; 87040; 87070; 87149; 87205; 93005; 93306; 93798; 96361; 96365; 96375; A4216; G8978-GP-CI; G8979-GP-CI; G8980-GP-CI; G8987-GO-CI; G8988-GO-CI; G8989-GO-CI; J0692; J0696; J1650; J3370